=== PATIENT | female | born 1955 | race Caucasian/White ===

== ENCOUNTER 2022-10-28 09:16 | Outpatient (RCR) | payer MEDICARE, OTHER | END 2022-11-28 21:23 | disposition home or self-care (01) | LOC: OPPGERO 09:16 | DX: F33.1 Major depressive disorder, recurrent, moderate (principal); F41.1 Generalized anxiety disorder ==

== ENCOUNTER 2023-05-17 09:49 | Outpatient (RCR) | payer MEDICARE, OTHER | END 2023-05-27 17:21 | LOC: OPPGERO 09:49 | DX: F33.1 Major depressive disorder, recurrent, moderate (principal); F41.1 Generalized anxiety disorder ==